=== PATIENT | male | born 2000 | race Caucasian/White ===

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

== ENCOUNTER 2022-03-31 02:34 | Observation (INO) | payer BC, OTHER ==
[2022-03-31] MEDS ORDERED: SODIUM CHLORIDE 0.9% 1,000 ML IV STA (02:50)
[2022-03-31] MEDS ORDERED: PROCHLORPERAZINE INJ 10 MG/2 ML VIAL IVP STA (02:57)
[2022-03-31] MEDS ORDERED: diphenhydrAMINE 50 MG/ML 1 ML VIAL IVP STA (02:58)
--- NOTE | 2022-03-31 02:58 | ED ---
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 Patient states he was doing some work where he has to put him on some parts. Patient apparently passed out according to bystanders and struck his left ribs on a rack. The patient then was found lying on the floor. Patient complaining some pain to the occipital region of his scalp. Patient ended up going home with his grandfather. After a period of observation he started having episodes of vomiting. He has vomited twice at home. Patient complaining of pain to the occipital region of his scalp. Patient also states that he does not eat well, especially at work. Patient unsure whether he drank anything at work. Patient does not recall any preceding symptomology. Patient denies any chest pain, no palpitations, no shortness of breath. Patient has no history of syncopal episodes. Patient smokes cigarettes and does vape. Denies any drug abuse. Patient occasionally uses alcohol. POSITIVE for headache, no fever or chills, no changes in vision or hearing, no sore throat or difficulty with speech, no neck pain, no chest pain or shortness of breath, no abdominal pain, no changes in urination or bowel movements, no numbness or tingling, no extremity pain, no skin rashes or lesions. Past medical, surgical, social, and family history reviewed. MD Complaint: loss of consciousness - Related Data Previous Rx's Medication Instructions Recorded guaiFENesin [Mucinex] 600 mg PO Q12HR PRN #20 tab 07/25/21 Allergies Allergy/AdvReac Type Severity Reaction Status Date / Time No Known Allergies Allergy Verified 03/31/22 02:40 Review of Systems ROS Statement: Those systems with pertinent positive or pertinent negative responses have been documented in the HPI. ROS Other: All systems not noted in ROS Statement are negative. Past Medical History Past Medical History: No Reported History History of Any Multi-Drug Resistant Organisms: None Reported Past Surgical History: No Surgical Hx Reported Past Psychological History: No Psychological Hx Reported Smoking Status: Current every day smoker Past Alcohol Use History: Occasional Past Drug Use History: Marijuana General Exam - General Exam Comments Initial Comments: Ill-appearing 21-year-old male in minimal distress. Patient appears to be neurologically intact. Alert and oriented 4, cranial nerves II through XII intact. Finger to nose intact. Romberg is normal. Patient complaining of occipital headache. Limitations: no limitations General appearance: alert, in distress Head exam: Present: atraumatic, normocephalic, normal inspection Eye exam: Present: normal appearance, PERRL, EOMI. Absent: scleral icterus, conjunctival injection, periorbital swelling ENT exam: Present: normal exam, normal oropharynx, mucous membranes moist, TM's normal bilaterally, normal external ear exam. Absent: mucous membranes dry Neck exam: Present: normal inspection, full ROM. Absent: tenderness, meningismus, lymphadenopathy Respiratory exam: Present: normal lung sounds bilaterally, chest wall tenderness (Patient has tenderness over the left ribs with a superficial abrasion noted. No crepitus). Absent: respiratory distress, wheezes, rales, rhonchi, stridor Cardiovascular Exam: Present: regular rate, normal rhythm, normal heart sounds. Absent: systolic murmur, diastolic murmur, rubs, gallop, clicks GI/Abdominal exam: Present: soft, normal bowel sounds. Absent: distended, tende rness, guarding, rebound, rigid Extremities exam: Present: normal inspection, full ROM, normal capillary refill. Absent: tenderness, pedal edema, joint swelling, calf tenderness Back exam: Present: normal inspection Neurological exam: Present: alert, oriented X3, CN II-XII intact, normal gait. Absent: motor sensory deficit Psychiatric exam: Present: normal affect, normal mood Skin exam: Present: warm, dry, intact, normal color, pallor. Absent: rash, cyanosis, diaphoretic, erythema, urticaria, vesicles, petechiae, mottled, abrasion Course Vital Signs 03/31/22 03/31/22 03/31/22 02:37 03:40 03:52 Temperature 98.5 F Pulse Rate 64 Pulse Rate [ 45 L 55 L Neuro Psych Sales Specialist ] Respiratory 18 20 Rate Blood Pressure 120/59 Blood Pressure 113/71 [Right Arm Sitting] Blood Pressure 95/53 [Right Arm Standing] Blood Pressure 111/68 [Right Arm Supine] O2 Sat by Pulse 99 93 L Oximetry - Reevaluation(s) Reevaluation #1: 03/31/22 04:01 Patient somewhat improved after antiemetics. The patient's heart rate has been anywhere between 45 and 55. Patient was 64 bpm in the triage baires. However, given the patient's symptomology and long QT interval on EKG. This could be cardiogenic syncope. Patient has no recollection of any preceding symptomology. EKG Findings - EKG Comments: EKG Findings:: EKG reveals sinus bradycardia with a proton with a rate of 46. QT interval 506 ms, QTC 464 ms, normal intervals otherwise, normal axis, RSR pattern in V1, normal QRS morphology otherwise, no comparison study, reviewed by the ED attending physician Medical Decision Making - Medical Decision Making Suspect the patient had a vasovagal episode, possibly related to dehydration or the fact the patient had not eaten in over 9 hours. Patient likely struck the occipital region of the scalp. Suspect the patient may have some retrograde amnesia related to the head injury. Obtain a computed tomography scan. We'll also obtain x-rays of the chest and left ribs. General syncopal workup otherwise. The case was discussed in detail with ED attending physician. Presentation, findings, treatment plan discussed in detail. Teaching Associate, Dr. Soto - Lab Data Result diagrams: 03/31/22 03:08 Lab Results 03/31/22 03/31/22 Range/Units 03:07 03:08 WBC 11.1 H (4.0-11.0) k/uL RBC 5.02 (4.30-5.90) m/uL Hgb 14.6 (13.0-17.5) gm/dL Hct 45.8 (39.0-53.0) % MCV 91.3 (80.0-100.0) fL MCH 29.1 (25.0-35.0) pg MCHC 31.9 (31.0-37.0) g/dL RDW 13.2 (11.5-15.5) % Plt Count 238 (150-450) k/uL MPV 7.9 Neutrophils % 79 % Lymphocytes % 15 % Monocytes % 4 % Eosinophils % 0 % Basophils % 0 % Neutrophils # 8.8 H (1.3-7.7) k/uL Lymphocytes # 1.7 (1.0-4.8) k/uL Monocytes # 0.5 (0-1.0) k/uL Eosinophils # 0.1 (0-0.7) k/uL Basophils # 0.0 (0-0.2) k/uL POC Glucose (mg/dL) 103 (70-110) mg/dL POC Glu Vice President Of Nursing ID Jn Hall Disposition Clinical Impression: Long QT syndrome, Sinus bradycardia, Syncope, cardiogenic, Closed head injury, Contusion of rib on left side Disposition: ADMITTED IP TO THIS HOSP Condition: Fair Is patient prescribed a controlled substance at d/c from ED?: No Time of Disposition: 04:00 Decision to Admit Reason: Admit from EC Decision Time: 04:00
[2022-03-31 03:10] LABS: Glucose,Whole Blood 103 mg/dL (70-110)
--- NOTE | 2022-03-31 03:37 | CT ---
EXAMINATION TYPE: CT brain wo con DATE OF EXAM: 03/31/2022 COMPARISON: None HISTORY: Syncope, nausea, and vomitting. CT DLP: 1070.4 mGycm Automated exposure control for dose reduction was used. Images obtained of the brain with no contrast. Ventricles and sulci appear normal. There is no mass effect or midline shift. No sign of intracranial hemorrhage. Calvarium is intact. There is normal aeration of the mastoid sinuses. Skull base is inta ct. IMPRESSION: Negative unenhanced head CT scan.
--- NOTE | 2022-03-31 03:39 | XR ---
EXAMINATION TYPE: XR ribs LT w pa chest xray DATE OF EXAM: 03/31/2022 COMPARISON: NONE HISTORY: Left rib injury. Pain TECHNIQUE: 5 views FINDINGS: Heart and mediastinum are normal. Lungs are clear. Diaphragm is normal. Bony thorax is inta ct. There are no hilar masses. There is no pleural effusion or pneumothorax. The left ribs appear int act. IMPRESSION: Normal chest. Normal left ribs.
[2022-03-31] MEDS ORDERED: MAGNESIUM SULFATE-D5W PMX 1 GM in DEXTROSE/WATER 1 100ML.BAG IVPB ONE (03:46)
[2022-03-31] MEDS ORDERED: ACETAMINOPHEN TAB 500 MG TAB PO STA (03:52)
[2022-03-31 03:58] LABS: Basophils % (A) 0 %; Eosinophils # (A) 0.1 k/uL (0-0.7); Eosinophils % (A) 0 %; HCT 45.8 % (39.0-53.0); HGB 14.6 gm/dL (13.0-17.5); Lymphocytes # (A) 1.7 k/uL (1.0-4.8); Lymphocytes % (A) 15 %; MCH 29.1 pg (25.0-35.0); MCHC 31.9 g/dL (31.0-37.0); MCV 91.3 fL (80.0-100.0); Mean Platelet Volume 7.9; Monocytes # (A) 0.5 k/uL (0-1.0); Monocytes % (A) 4 %; Neutrophils # (A) 8.8 k/uL (1.3-7.7); Neutrophils % (A) 79 %; Platelet Count 238 k/uL (150-450); RBC 5.02 m/uL (4.30-5.90); RDW 13.2 % (11.5-15.5); WBC 11.1 k/uL (4.0-11.0)
[2022-03-31] MEDS ORDERED: PROCHLORPERAZINE 5 MG TAB PO PRN (04:11)
[2022-03-31] MEDS ORDERED: ACETAMINOPHEN TAB 325 MG TAB PO PRN (04:11)
[2022-03-31] MEDS ORDERED: PROCHLORPERAZINE SUPPOSITORY 25 MG SUPP RECTAL PRN (04:11)
[2022-03-31] MEDS ORDERED: NALOXONE 0.4 MG/ML 1 ML VIAL IV PRN (04:11)
[2022-03-31] MEDS ORDERED: SODIUM CHLORIDE 0.9% 1,000 ML IV SCH (04:15)
[2022-03-31 04:16] LABS: African American GFR (CKD) >90 (>60 ml/min/1.73 sqM); Anion Gap 16 mmol/L; Blood Urea Nitrogen 13 mg/dL (9-20); Carbon Dioxide 21 mmol/L (22-30); Chloride 101 mmol/L (98-107); Glucose 106 mg/dL (74-99); Magnesium 1.9 mg/dL (1.6-2.3); Non-African American GFR(CKD) >90 (>60 ml/min/1.73 sqM); Potassium 4.5 mmol/L (3.5-5.1); Sodium 138 mmol/L (137-145)
--- NOTE | 2022-03-31 05:47 | P.HPIM ---
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 He woke up after brief syncopal episodes denies any symptoms preceding or following the episodes. Denies that this ever happened to him before. He feels completely fine other than pain and bruising over his side. Bystanders did not report any seizure- like activity denies any loss of bladder or bowel control denies any tongue biting. Denies any head injuries in the past. Patient reports that he is in good health generally. Denies any history of blood clots denies any recent travel or hospitalization denies any fevers chills shortness of breath or chest pain denies any abdominal pain nausea vomiting denies any recent illness. Patient denies any history of exercise intolerance Workup in the ED blood work was unremarkable CT of the brain showed no acute pathology EKG showed prolonged QT interval Patient otherwise denies tobacco smoking denies illicit drugs denies alcohol. Review of Systems Pertinent positives as noted in HPI. All other systems were reviewed and are negative Past Medical History Past Medical History: No Reported History History of Any Multi-Drug Resistant Organisms: None Reported Past Surgical History: No Surgical Hx Reported Past Psychological History: No Psychological Hx Reported Smoking Status: Current every day smoker Past Alcohol Use History: Occasional Past Drug Use History: Marijuana - Past Family History family Additional Family Medical History / Comment(s): No sitting cardiac in the family Medications and Allergies Home Medications Medication Instructions Recorded Confirmed Type guaiFENesin [Mucinex] 600 mg PO Q12HR PRN #20 tab 07/25/21 Rx Allergies Allergy/AdvReac Type Severity Reaction Status Date / Time No Known Allergies Allergy Verified 03/31/22 02:40 Physical Exam Vitals: Vital Signs Temp Pulse Pulse Resp BP BP BP 03/31/22 03:52 55 L 20 113/71 95/53 03/31/22 03:40 45 L 03/31/22 02:37 98.5 F 64 18 120/59 BP Pulse Ox 03/31/22 03:52 111/68 93 L 03/31/22 03:40 03/31/22 02:37 99 Intake and Output 03/30/22 03/30/22 03/31/22 14:59 22:59 06:59 Other: Weight 86.183 kg Constitutional: No acute distress, conversant, pleasant Eyes: Anicteric sclerae, moist conjunctiva, Pupils equal round reactive to light ENMT: NC/AT Oropharynx clear, no erythema, or exudates Neck: Supple, FROM, no masses, or JVD No carotid bruits No thyromegaly Lungs: Clear to auscultation Clear to percussion Normal respiratory effort, no accessory muscle use Cardiovascular: Heart regular in rate and rhythm, No murmurs, gallops, or rubs No peripheral edema Abdominal: Soft Nontender, no guarding, rebound or rigidity Abdomen moving with respiration Normoactive bowel sounds No hepatomegaly, No splenomegaly No palpable mass No abdominal wall hernia noted Skin: Normal temperature, tone, texture, turgor No induration No subcutaneous nodules No rash, lesions No ulcers Extremities: No digital cyanosis No clubbing Pedal pulses intact and symmetrical Radial pulses intact and symmetrical No calf tenderness Psychiatric: Alert and oriented to person, place and time Appropriate affect fair judgement Neuro Muscles Strength 5/5 in all 4 extremities Sensation to light touch grossly present throughout Cranial nerves II-XII grossly intact No focal sensory deficits Lymphatics: no palpable cervical or supraclavicular , or inguinal lymph nodes Results CBC & Chem 7: 03/31/22 03:08 03/31/22 03:08 Labs: Abnormal Lab Results - Last 24 Hours (Table) 03/31/22 03/31/22 Range/Units 03:08 03:08 WBC 11.1 H (4.0-11.0) k/uL Neutrophils # 8.8 H (1.3-7.7) k/uL Carbon Dioxide 21 L (22-30) mmol/L Glucose 106 H (74-99) mg/dL Assessment and Plan Assessment: Syncopal episode CT of the brain no acute pathology Chest x-ray no acute pathology EKG prolonged QT interval Cardiac monitoring Cardiology consult Fall precautions Check echocardiogram Check carotid ultrasound Check thyroid function Monitor vital signs DVT prophylaxis of subcu 3 times a day Full code
[2022-03-31 07:36] VITALS: TEMP 97.9
[2022-03-31] MEDS ORDERED: HEPARIN SODIUM,PORCINE/PF 5,000 UNIT/0.5 ML SYRINGE SQ SCH (08:00)
[2022-03-31 08:25] LABS: Appearance,Urine Clear (Clear); Bilirubin,Urine Negative (Negative); Blood,Urine Negative (Negative); Color,Urine Yellow; Glucose,Urine (UA) Negative (Negative); Ketones,Urine 2+ (Negative); Leukocyte Esterase,Urine Negative (Negative); Nitrite,Urine Negative (Negative); PH, Urine 6.5 (5.0-8.0); Protein,Urine Negative (Negative); Specific Gravity,Urine 1.017 (1.001-1.035); Urobilinogen,Urine <2.0 mg/dL (<2.0)
--- NOTE | 2022-03-31 09:19 | CA ---
Transthoracic Echo Report Name: Preet Wyatt Age: 21 Gender: M : 2000 Exam Date: 03/31/2022 08:12 Exam Location: [facility] Ht (in): 68 Wt (lb): 190 Ordering Physician: Frannie Watson MD Attending/Referring Phys: [id number], Shirley Rooming House Operator Sandy Henry [facility] Procedure CPT: Indications: Syncope Cardiac Hx: Technical Quality: Excellent Contrast 1: Total Dose (mL): Contrast 2: Total Dose (mL): MEASUREMENTS (Male / Female) Normal Values 2D ECHO LV Diastolic Diameter PLAX 4.5 cm 4.2 - 5.9 / 3.9 - 5.3 cm LV Systolic Diameter PLAX 2.8 cm IVS Diastolic Thickness 0.7 cm 0.6 - 1.0 / 0.6 - 0.9 cm LVPW Diastolic Thickness 0.8 cm 0.6 - 1.0 / 0.6 - 0.9 cm LV Relative Wall Thickness 0.3 RV Internal Dim ED PLAX 2.9 cm LA Systolic Diameter LX 3.5 cm 3.0 - 4.0 / 2.7 - 3.8 cm LA Volume 40.5 cm??? 18 - 58 / 22 - 52 cm??? M-MODE Aortic Root Diameter MM 2.7 cm MV E Point Septal Separation 0.5 cm AV Cusp Separation MM 2.2 cm DOPPLER AV Peak Velocity 171.4 cm/s AV Peak Gradient 11.8 mmHg MV Area PHT 1.9 cm??? Mitral E Point Velocity 106.3 cm/s Mitral A Point Velocity 51.3 cm/s Mitral E to A Ratio 2.1 MV Deceleration Time 392.5 ms MV E' Velocity 14.4 cm/s Mitral E to MV E' Ratio 7.4 TR Peak Velocity 251.3 cm/s TR Peak Gradient 25.3 mmHg Right Ventricular Systolic Press 29.7 mmHg FINDINGS Left Ventricle Left ventricular ejection fraction is estimated at 55-60 %. Left ventricular cavity size normal. Left ventricular wall thickness normal. Right Ventricle Normal right ventricular size and function. Right ventricular systolic pressure within normal limits. Right Atrium Normal right atrial size. Left Atrium Normal left atrial size. No evidence for an atrial septal defect. Mitral Valve Mild mitral regurgitation. No mitral stenosis,structurally normal mitral valve. or prolapse. Aortic Valve Trileaflet aortic valve. No aortic valve stenosis or regurgitation. Tricuspid Valve Mild tricuspid regurgitation.structurally normal tricuspid valve. Pulmonic Valve Structurally normal pulmonic valve. Pericardium Normal pericardium. No pericardial effusion. Aorta Normal size aortic root and proximal ascending aorta. CONCLUSIONS 1. Normal left size and systolic function 2. Mild mitral and tricuspid regurgitation Previewed by: Dr. Lauren De La Torre MD (Electronically Signed) Final Date: 31 March 2022 09:18
[2022-03-31 10:48] LABS: Amphetamine Screen,Urine Not Detected (NotDetected); Barbiturate Screen,Urine Not Detected (NotDetected); Benzodiazepines Screen,Urine Not Detected (NotDetected); Cocaine Screen,Urine Not Detected (NotDetected); Methadone Screen, Urine Not Detected (NotDetected); Opiate Screen,Urine Not Detected (NotDetected); Oxycodone Screen, Urine Not Detected (NotDetected); Phencyclidine Screen,Urine Not Detected (NotDetected); Tricyclic Antidepressant,Urine Not Detected (NotDetected); Urn Cannabinoid Scrn Detected (NotDetected)
--- NOTE | 2022-03-31 11:47 | US ---
EXAMINATION TYPE: US carotid duplex BILAT DATE OF EXAM: 03/31/2022 COMPARISON: NONE CLINICAL HISTORY: syncope. Syncope. Current smoker. TECHNIQUE: Carotid duplex ultrasound examination. Indirect Doppler criteria was utilized. FINDINGS: EXAM MEASUREMENTS: RIGHT: Peak Systolic Velocity (PSV) cm/sec ----- Right CCA: 133.2 ----- Right ICA: 122.1 ----- Right ECA: 149.6 ICA/CCA ratio: 0.9 RIGHT: End Diastole cm/sec ----- Right CCA: 26.8 ----- Right ICA: 22.0 ----- Right ECA: 12.3 LEFT: Peak Systolic Velocity (PSV) cm/sec ----- Left CCA: 131.8 ----- Left ICA: 122.1 ----- Left ECA: 110.8 ICA/CCA ratio: 0.9 LEFT: End Diastole cm/sec ----- Left CCA: 22.0 ----- Left ICA: 25.2 ----- Left ECA: 25.4 VERTEBRALS (direction of flow): Right Vertebral: Antegrade Left Vertebral: Antegrade: PS was 83.7 cm/s Rhythm: EDGE BEADER NOTES: Elevated velocities are noted within bilateral common carotid arteries. Elevated velocity in right ECA also. Grayscale images show no significant focal plaque at carotid bulb level. IMPRESSION: No hemodynamically significant stenosis in either internal carotid artery. Increased pea k systolic velocity bilateral common carotid arteries raises concern for underlying hypertension. Cor relate clinically. Criteria for Assigning % of Stenosis / Diameter reduction (Estimation based on the indirect measurements of the internal carotid artery velocities (ICA PSV). 1. Normal (no stenosis)=ICA PSV < 125 cm/s: ratio < 2.0: ICA EDV<40 cm/s. 2. Less than 50% stenosis=ICA PSV < 125 cm/s: ratio < 2.0: ICA EDV<40 cm/s. 3. 50 to 69% stenosis=ICA PSV of 125 to 230 cm/s: ration 2.0 ? 4.0: ICA EDV 40-100 cm/s. 4. Greater than 70% stenosis to near occlusion= ICA PSV > 230 cm/s: ratio > 4.0: ICA EDV > 100 cm/s. 5. Near occlusion= ICA PSV velocities may be low or undetectable: variable ratio and ICA EDV. 6. Total occlusion=unable to detect flow.
--- NOTE | 2022-03-31 13:11 | P.CRDCN ---
History of Present Illness Consult date: 03/31/22 Requesting physician: Frannie Watson Reason for Consult (text): syncope Chief complaint: syncope History of present illness: This is a pleasant 21-year-old male patient with no significant past medical history. He is a current every day smoker. He smokes marijuana occasionally but nothing recent and denies alcohol intake. He admits that he does not eat or drink well especially while he is at work. He presented to the emergency department after having a syncopal episode while at work. He apparently been working on a part and pulling at something and slipped back and hit his side on a rack causing some pain. Following this he had a syncopal episode for which she is unsure how long he was down for. He denies any seizure-like activity and did not lose control of bowel or bladder. When he woke up he felt somewhat dizzy. After returning home he had 2 episodes of vomiting and decided to come to the emergency department for further evaluation. EKG on admission showed sinus bradycardia, heart rate 46 with a prolonged QT interval and evidence of possible U wave. Computed tomography scan of the brain was negative. Rib and chest x-ray showed normal chest and normal left ribs. He had an echocardiogram with Doppler study done this morning which showed a normal LV systolic function with an ejection fraction of 55-60%, mild MR and mild TR. He had a carotid duplex study and results are pending. Vital signs of been stable his heart rate remains in the 40s to 50s but he seems to be asymptomatic with this. Laboratory values were reviewed and show white blood cell count of 11.1, normal renal function and troponins negative 2. Glucose was 106 and urinalysis shows 2+ ke tones in the urine. Past Medical History Past Medical History: No Reported History History of Any Multi-Drug Resistant Organisms: None Reported Past Surgical History: No Surgical Hx Reported Past Psychological History: No Psychological Hx Reported Smoking Status: Current every day smoker Past Alcohol Use History: Occasional Past Drug Use History: Marijuana - Past Family History family Additional Family Medical History / Comment(s): No sitting cardiac in the family Medications and Allergies Home Medications Medication Instructions Recorded Confirmed Type No Known Home Medications 03/31/22 03/31/22 History Allergies Allergy/AdvReac Type Severity Reaction Status Date / Time No Known Allergies Allergy Verified 03/31/22 06:34 Physical Exam Vitals: Vital Signs Temp Pulse Pulse Resp BP BP BP 03/31/22 09:00 50 L 104/56 03/31/22 07:29 97.9 F 45 L 14 03/31/22 05:57 45 L 03/31/22 05:52 98 F 45 L 16 03/31/22 03:52 55 L 20 113/71 03/31/22 03:40 45 L 03/31/22 02:37 98.5 F 64 18 120/59 BP BP Pulse Ox 03/31/22 09:00 100 03/31/22 07:29 111/57 100 03/31/22 05:57 03/31/22 05:52 107/63 99 03/31/22 03:52 95/53 111/68 93 L 03/31/22 03:40 03/31/22 02:37 99 Intake and Output 03/30/22 03/31/22 03/31/22 22:59 06:59 14:59 Intake Total 0 Balance 0 Intake: Oral 0 Other: Voiding Method Toilet Urinal Weight 86.183 kg PHYSICAL EXAMINATION: This is a 21-year-old male in no apparent distress at the time of my examination. VITAL SIGNS: Blood pressure 111/57, heart rate 45, respirations 14, temp 97.9F. Patient is 100 % on room air. HEENT: Head is atraumatic, normocephalic. Pupils are equal, round. Sclerae anicteric. Conjunctivae are clear. Mucous membranes of the mouth are moist. Neck is supple. There is no elevated jugular venous pressure. No carotid bruit is heard. CHEST EXAMINATION: Clear to auscultation bilaterally. No wheezes rales or rhonchi. Respirations even and nonlabored. HEART EXAMINATION: Heart regular, positive S1 and S2. No S3. No S4. No clicks, rubs or murmurs. ABDOMEN: Soft, nontender. Bowel sounds are heard. No organomegaly noted. EXTREMITIES: 2+ peripheral pulses with no evidence of peripheral edema and no calf tenderness noted. NEUROLOGIC EXAMINATION: Patient is awake, alert and oriented x3. Results 03/31/22 03:08 03/31/22 03:08 Cardiac Enzymes 03/31/22 03/31/22 Range/Units 03:08 05:31 Troponin I <0.012 <0.012 (0.000-0.034) ng/mL CBC 03/31/22 Range/Units 03:08 WBC 11.1 H (4.0-11.0) k/uL RBC 5.02 (4.30-5.90) m/uL Hgb 14.6 (13.0-17.5) gm/dL Hct 45.8 (39.0-53.0) % Plt Count 238 (150-450) k/uL Comprehensive Metabolic Panel 03/31/22 Range/Units 03:08 Sodium 138 (137-145) mmol/L Potassium 4.5 (3.5-5.1) mmol/L Chloride 101 (98-107) mmol/L Carbon Dioxide 21 L (22-30) mmol/L BUN 13 (9-20) mg/dL Creatinine 1.01 (0.66-1.25) mg/dL Glucose 106 H (74-99) mg/dL Calcium 10.0 (8.4-10.2) mg/dL Current Medications Generic Name Dose Route Start Last Admin Trade Name Davidq PRN Reason Stop Dose Admin Acetaminophen 650 mg 03/31/22 04:11 Acetaminophen Tab 325 Mg Tab PO Q6HR PRN Mild Pain or Fever > 100.5 Heparin Sodium (Porcine) 5,000 unit 03/31/22 08:00 03/31/22 09:00 Heparin Sodium,Porcine/Pf 5,000 Unit/0.5 Ml Syringe SQ 5,000 unit Q8HR GARRICK Administration Sodium Chloride 1,000 mls @ 75 mls/hr 03/31/22 04:15 03/31/22 07:22 Saline 0.9% IV 75 mls/hr .[id number] GARRICK Administration Naloxone HCl 0.2 mg 03/31/22 04:11 Naloxone 0.4 Mg/Ml 1 Ml Vial IV Q2M PRN Opioid Reversal Prochlorperazine Maleate 5 mg 03/31/22 04:11 Prochlorperazine 5 Mg Tab PO Q8HR PRN Nausea And Vomiting Prochlorperazine Maleate 25 mg 03/31/22 04:11 Prochlorperazine Suppository 25 Mg Supp RECTAL Q12HR PRN Nausea And Vomiting Intake and Output 03/30/22 03/31/22 03/31/22 22:59 06:59 14:59 Intake Total 0 Balance 0 Intake: Oral 0 Other: Voiding Method Toilet Urinal Weight 86.183 kg 03/31/22 03:08 03/31/22 03:08 Assessment and Plan Assessment: #1 syncope, likely vasovagal #2 sinus bradycardia #3 nicotine dependence #4 occasional marijuana use Plan: From cardiology's perspective echocardiogram shows normal LV systolic function with no significant valvular abnormalities. Discussed with patient the importance of adequate hydration. We will check orthostatic blood pressures. Increase patient's activity get him up and ambulating. Depending on the patient's symptoms further recommendations will be made the patient will likely benefit from outpatient event monitor. [employer] note has been reviewed, I agree with a documented findings and plan of care. Patient was seen and examined.
[2022-03-31 13:21] VITALS: BP 102/62; PULSE 49; RESP 12
--- NOTE | 2022-03-31 15:08 | P.DS ---
Providers Date of admission: 03/31/22 04:03 Expected date of discharge: 03/31/22 Attending physician: Frannie Watson MD Consults: 03/31/22 04:11 Consult Physician Urgent Consulting Provider: Lauren De La Torre Consult Reason/Comments: long QT, syncope, sinus bradycardia Do you want consulting provider notified?: Yes, Notify in am Primary care physician: Stated None Hospital Course: Discharge Diagnosis: Syncopal episode, patient to follow up outpatient with cardiology next week in office to further discuss placement of event monitor. Sinus bradycardia Prolonged QT Hospital Course: Patient is a very pleasant 21-year-old male with no past reported medical history. He presented to the emergency department with a chief complaint of syncopal episode. 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 It was reported that patient fell to the ground losing consciousness but did not exhibit any seizure-like activity, loss of bowel or bladder, or bite his tongue. Patient denies previously ever having any syncopal episodes or loss of consciousness. Patient did sustain bruising to right side but no other injuries noted and patient denies having any pain or discomfort. Patient does report smoking approximately a quarter to a half a pack of cigarettes a day as well as daily marijuana use. Patient reports only occasional alcohol use and denies any further drug use. Patient denies history of sudden cardiac in his family and reports his grandfather does have a pacemaker but did not receive until he was elderly. Patient underwent full ayad luation in the emergency department. CT head completed showing no acute intercranial process. X-ray right ribs negative for fracture or dislocation. EKG showing sinus bradycardia at 46 bpm with a prolonged QT/QTC of 544/459 ms. Patient was admitted under services with consultation to cardiology. Echocardiogram completed revealing normal EF of 55-60% with mild mitral and tricuspid regurgitation. Carotid Doppler negative for stenosis. Cardiology recommending outpatient follow-up next week to further discuss placement of event monitor. Physical exam: Patient seen and examined at bedside. Vital signs reviewed and stable. General: Nontoxic, no distress and appears stated age. Derm: Skin warm and dry, normal coloration for ethnicity. Head: Atraumatic, normocephalic and symmetric. Eyes: EOMs intact, no lid lag, and anicteric sclera Mouth: no lip lesions, mucus membranes moist Cardiovascular: Bradycardic rate with regular rhythm with normal S1S2, no murmur, positive posterior tibial pulses bilaterally, and cap refill < 2 seconds. Lungs: Respirations even, regular, and unlabored on room air. Lungs CTA bilaterally, no rhonchi, no rales, no wheezing, and no accessory muscle usage. Abdominal: soft, nontender to palpation, no guarding, no appreciable organomegaly Ext: ROM intact. No gross muscle atrophy, no edema, no contractures Neuro: Speech clear, face symmetrical and CN II-XII grossly intact with no noted focal neuro deficits Psych: Alert and oriented to person, place, time, and situation. Appropriate and pleasant affect. A total of 39 minutes of time spent preparing this complex discharge summary. Pt was discharged on 03/31/22 at 3:06 PM. Patient Condition at Discharge: Stable Plan - Discharge Summary New Discharge Prescriptions: No Action No Known Home Medications Discharge Medication List No Known Home Medications 03/31/22 [History] Follow up Appointment(s)/Referral(s): Lauren De La Torre MD [STAFF PHYSICIAN] - 1 Week (Office will call patient with appointment ) Bryson Sheridan MD [STAFF PHYSICIAN] - 1-2 Days Patient Instructions/Handouts: Syncope (DC), Bradycardia (DC) Activity/Diet/Wound Care/Special Instructions: Activity: As tolerated. Take breaks as needed. Diet: Regular diet Special Instructions: Please keep all of your doctor's appointments and follow-ups as needed. You will need to follow up outpatient with cardiology, Dr. De La Torre to schedule appointment for placement of event monitor. Thank you for allowing us to participate in your care, it was truly a pleasure having you for our patient!!! Discharge Disposition: HOME SELF-CARE
== END 2022-03-31 16:18 | disposition home or self-care (01) ==
LOC: EC 02:34 → 6NMEDSUR 04:03
PROVIDERS: ADMIT Internal Medicine; ATTEND Internal Medicine
DX: S09.90XA Unspecified injury of head, initial encounter (principal); S20.212A Contusion of left front wall of thorax, initial encounter; W19.XXXA Unspecified fall, initial encounter; R55 Syncope and collapse; F17.210 Nicotine dependence, cigarettes, uncomplicated; I45.81 Long QT syndrome
CPT/HCPCS: 96372; 96361; 96365; 96375; 99285; 36415; 93005; 93306; 80048; 84443; 83735; 84484; 85025; 81003; 80306; 87635; 71101; 93880; 70450; G0378; J1200; J0780; J3475; J1644

== ENCOUNTER → 2022-06-07 | Outpatient (CLI) | payer BC, OTHER ==
--- NOTE | 2022-06-07 20:31 | CT ---
EXAMINATION TYPE: CT ChestAbdPelvis wo/w con DATE OF EXAM: 06/07/2022 INDICATION: abnormal weightloss x1 year over 100lbs COMPARISON: None CT DLP: 1071.5 mGycm CONTRAST: Performed with Oral Contrast and with IV Contrast, patient injected with 100 mL of Isovue 300. TECHNIQUE: Axial images at 5 mm thick sections. Reconstructed images in the coronal plane. Delayed images through the kidneys. FINDINGS: CT CHEST: Portion of the thyroid visualized is normal. No suspicious lung nodules or focal infiltrates are present. No enlarged mediastinal or hilar adenopathy is evident. The ascending aorta diameter at the level of the main pulmonary artery is 2.6 cm. The main pulmonary artery diameter at the bifurcation is 2.[address] ABDOMEN: Liver: Normal Spleen: Normal Pancreas: Normal Adrenal glands: The adrenal glands are normal. Gallbladder: Normal Kidneys: No masses are evident. No hydronephrosis is present. No cysts are present. No renal stone s are identified. Aorta: Normal Inferior vena cava: Normal. CT PELVIS: Loops of bowel within the abdomen and pelvis are normal. Loops of bowel appear nondilated. There a re loops of bowel which are incompletely distended or lack oral contrast limiting their evaluation. Appendix: Normal as visualized. Urinary bladder: Normal. Genitourinary structures: Prostate appears normal. Osseous structures: No suspicious lytic or sclerotic lesions. IMPRESSIONS: 1. No suspicious masses or abnormality radiographically apparent.
== END | disposition home or self-care (01) ==
LOC: RADCTMAIN 14:23
PROVIDERS: ATTEND Internal Medicine Gastroenterology
DX: K63.4 Enteroptosis (principal); R63.4 Abnormal weight loss
CPT/HCPCS: 71270; 74178; Q9967